=== PATIENT | female | born 1960 | race Asian ===

== ENCOUNTER 2023-02-07 08:15 | Day surgery (SDC) | payer OTHER ==
[~2023-02-07] VITALS: Ht 160 cm; Wt 68.9 kg
[2023-02-07] MEDS ORDERED: fentaNYL citrate 0.05 MG/ML VIAL ONE (09:18)
[2023-02-07] MEDS ORDERED: MIDAZOLAM 5 MG/5 ML VIAL ONE (09:18)
[2023-02-07] MEDS ORDERED: diphenhydrAMINE 50 MG/ML VIAL ONE (09:49)
[2023-02-07] MEDS: MIDAZOLAM 2 MG/2 ML VIAL IVP ONE (09:55)
[2023-02-07] MEDS: fentaNYL citrate 0.05 MG/ML VIAL IVP ONE (09:56)
[2023-02-07] MEDS: diphenhydrAMINE 50 MG/ML VIAL IVP ONE (09:57)
== END 2023-02-07 11:29 | disposition home or self-care (01) ==
LOC: MOR 08:15 → MMU 08:23 → MOR 11:29
PROVIDERS: ATTEND Internal Medicine Gastroenterology
DX: Z12.11 Encounter for screening for malignant neoplasm of colon (principal); J45.909 Unspecified asthma, uncomplicated; E03.9 Hypothyroidism, unspecified; Z79.899 Other long term (current) drug therapy
CPT/HCPCS: 45378; 82948; J1200; J2250; J3010